=== PATIENT | male | born 1970 | race Caucasian/White ===

== ENCOUNTER 2023-07-27 06:15 | Emergency (ER) | payer SELFPAY ==
[~2023-07-27] VITALS: Ht 167.6 cm; Wt 95.3 kg
[2023-07-27 06:18] VITALS: BP 156/102; PULSE 97; RESP 16; TEMP 97.8; O2SAT 99
[2023-07-27 06:23] VITALS: BP 156/102; PULSE 97; RESP 16; TEMP 97.8; O2SAT 99
== END 2023-07-27 06:37 ==
LOC: MED 06:15
DX: I10 Essential (primary) hypertension (principal); Z98.890 Other specified postprocedural states
CPT/HCPCS: 99283